=== PATIENT | female | born 1995 | race American Indian/Alaskan Native ===

== ENCOUNTER 2018-03-20 21:20 | Emergency (ER) | payer SELFPAY ==
[2018-03-20 21:48] LABS: Basophils # (Auto) 0.1 K/mm3 (0.0-0.1); Basophils % (Auto) 0.9 % (0.0-1.8); Eosinophils # (Auto) 0.2 K/mm3 (0.0-0.4); Eosinophils % (Auto) 2.6 % (0.0-4.3); Hematocrit 37.7 % (30.3-42.9); Hemoglobin 12.7 gm/dl (10.1-14.3); Lymphocytes # (Auto) 2.1 K/mm3 (1.2-5.4); Lymphocytes % (Auto) 25.9 % (13.4-35.0); Mean Corpuscular HGB Conc 34 % (30-34); Mean Corpuscular Hemoglobin 30 pg (28-32); Mean Corpuscular Volume 88 fl (79-97); Monocytes # (Auto) 0.6 K/mm3 (0.0-0.8); Monocytes % (Auto) 7.5 % (0.0-7.3); Platelet Count 295 K/mm3 (140-440); Red Blood Count 4.27 M/mm3 (3.65-5.03)
[2018-03-20 22:00] VITALS: BP 137/64
[2018-03-20 22:05] LABS: BUN/Creatinine Ratio 20; Blood Urea Nitrogen 12 mg/dL (7-17); Calcium 9.3 mg/dL (8.4-10.2); Hemolysis Index 3
[2018-03-20] MEDS ORDERED: PEPCID PO ONE (22:11)
[2018-03-20] MEDS ORDERED: BANOPHEN PO ONE (22:11)
[2018-03-20] MEDS ORDERED: TYLENOL PO ONE (22:11)
--- NOTE | 2018-03-20 22:12 | Emergency Department Report ---
ED General Adult HPI - General Chief complaint: Psych Stated complaint: ANIEXTY Time Seen by Provider: 03/20/18 21:53 Source: patient, RN notes reviewed Mode of arrival: Ambulatory Limitations: No Limitations - History of Present Illness Initial comments: This is a 22-year-old female who is not known to this provider. The patient reports no chronic medical conditions. Patient believes that she might be today. If so, she reports that she is 1, para 0, and reports that her last period was 2 months ago. Patient presents to the ER today with complaint of "nervous breakdown." She reports that she recently found out that she was , that she lost her job, found out that her partner/fianc may have been unfaithful to her, and reports that "it was too much for me to deal with." She reports that she has right-sided intermittent abdominal pain, which is present for the past 3-4 weeks, intermittent, worsens when she gets " stressed out", and decreases when she "relaxes." She is not having any abdominal pain at this time. She denies irritative, obstructive urinary symptoms. She is currently not homicidal or suicidal, does not have hallucinations, and does not have access to guns or firearms. She further reports that while being seen and evaluated by the nurse in triage, she was asked a screening question regarding suicidality, and indicates that in the past she has contemplated self-harm, but has never actually done it, and has never had a discrete plan. She also reports that while she was feeling anxious she started to experience chest tightness and pressure, which did not radiate to the back, arms or neck. There is no vomiting, there is no diaphoresis, there is no cough, there is no new or different shortness of breath, and the patient denies leg pain, leg swelling, recent travel, recent surgery. -: Gradual, Sudden Location: abdomen Severity scale (0 -10): 0 Quality: other Consistency: other Improves with: other Worsens with: other Associated Symptoms: chest pain, loss of appetite, malaise, weakness, other ( abdominal pain, denies homicidality and suicidality currently). denies: confusion, cough, diaphoresis, fever/chills, headaches, nausea/vomiting, rash, seizure, shortness of breath, syncope - Related Data Home Medications Medication Instructions Recorded Confirmed Last Taken No Known Home Medications [No 03/20/18 03/20/18 Unknown Reported Home Medications] Allergies Allergy/AdvReac Type Severity Reaction Status Date / Time No Known Allergies Allergy Unverified 03/20/18 21:33 ED Review of Systems ROS: Stated complaint: ANIEXTY Other details as noted in HPI Constitutional: malaise. denies: fever Eyes: denies: eye discharge ENT: denies: epistaxis Respiratory: denies: cough Cardiovascular: chest pain Gastrointestinal: abdominal pain Genitourinary: denies: dysuria Musculoskeletal: denies: arthralgia, myalgia Skin: denies: lesions Neurological: weakness Psychiatric: anxiety. denies: homicidal thoughts, suicidal thoughts ED Past Medical Hx - Past Medical History Hx Psychiatric Treatment: Yes (depression,anxiety) - Surgical History Past Surgical History?: No - Social History Smoking Status: Current Every Day Smoker Substance Use Type: Alcohol, Marijuana - Medications Home Medications: Home Medications Medication Instructions Recorded Confirmed Last Taken Type No Known Home Medications [No 03/20/18 03/20/18 Unknown History Reported Home Medications] ED Physical Exam - General Limitations: No Limitations General appearance: alert, anxious - Head Head exam: Present: atraumatic, normocephalic - Eye Eye exam: Present: normal appearance, EOMI. Absent: nystagmus - ENT ENT exam: Present: normal exam, normal orophraynx, mucous membranes moist, normal external ear exam - Neck Neck exam: Present: normal inspection, full ROM. Absent: tenderness, meningismus - Respiratory Respiratory exam: Present: normal lung sounds bilaterally. Absent: respiratory distress - Cardiovascular Cardiovascular Exam: Present: regular rate, normal rhythm, normal heart sounds. Absent: bradycardia, tachycardia, irregular rhythm, systolic murmur, diastolic murmur, rubs, gallop - GI/Abdominal GI/Abdominal exam: Present: soft, normal bowel sounds, other (there is a negative Rovsing sign. There is negative Gorman sign. There is negative psoas sign. There is no right lower quadrant tenderness.). Absent: distended, tenderness, guarding, rebound, rigid, pulsatile mass - Extremities Exam Extremities exam: Present: normal inspection, full ROM, normal capillary refill , other (2+ pulses noted in the bilateral upper, lower extremities. Compartments soft. No long bony tenderness. The pelvis is stable.). Absent: tenderness, pedal edema, joint swelling, calf tenderness - Back Exam Back exam: Present: normal inspection, full ROM. Absent: tenderness, CVA tenderness (R), paraspinal tenderness, vertebral tenderness - Neurological Exam Neurological exam: Present: alert, oriented X3, CN II-XII intact, normal gait, other (Extraocular movements intact. Tongue midline. No facial droop. Facial sensation intact to light touch in the V1, V2, V3 distribution bilaterally. 5 and 5 strength in 4 extremities.. Sensation is intact to light touch in 4 extremities.). Absent: motor sensory deficit - Psychiatric Psychiatric exam: Present: anxious. Absent: homicidal ideation, suicidal ideation - Skin Skin exam: Present: warm, dry, intact, normal color. Absent: rash ED Course Vital Signs 03/20/18 03/20/18 21:24 21:52 Temperature 98.3 F 98.3 F Pulse Rate 119 H 93 H Respiratory 18 18 Rate Blood Pressure 161/79 Blood Pressure 137/64 [Left] O2 Sat by Pulse 100 100 Oximetry - Reevaluation(s) Reevaluation #1: 03/20/18 22:57 Differential diagnosis, including not limited to: Anxiety, panic attack, mood disorder, , urinary tract infection Assessment and plan: 22-year-old female who is clinically sober at this time, not homicidal, not suicidal, with multiple psychosocial stressors. She is initially tachycardic and hypertensive, likely secondary to anxiety. She is still somewhat anxious now, but her tachycardia has resolved, and blood pressure appears to be improved. There is absolutely no lower abdominal tenderness, rebound or guarding or peritoneal signs. Patient carried on a full and complete conversation with me while I performed an abdominal examination. Therefore, I think appendicitis or surgical condition is very unlikely. Patient is medicated appropriately with nonnarcotic medication, including Benadryl for anxiety, and we will obtain a gynecologic ultrasound. Given that she is not homicidal or suicidal, and given that she can take care of herself, it is my pain at the patient does not meet criteria for 1013. I think she would benefit from evaluation by the mental health counselor to help provide her with appropriate outpatient resources to help her manage her numerous psychosocial stressors. Doubt pulmonary embolus given lack of fever, lack of hypoxia, resolution of tachycardia, especially in the overall clinical contacts. Lung sounds do not discern any focal abnormality and the patient is young and otherwise healthy, therefore do not feel like x-ray the chest is required. EKG is pending at this time. Reevaluation #2: 03/21/18 00:54 Patient has been reassessed by this provider multiple times while in the department. She is in no distress, and belly remained soft on repeat examination. Ultrasound confirms 10 week 1 day intrauterine . Patient seen in conjunction with the psychiatric liaison, Mr. Harry Hoang who agrees that patient does not meet 1013 or involuntary hold criteria, I will provide the patient with outpatient resources. Patient instructed to follow up as soon as possible with outpatient gynecology for her . She is also counseled to discontinue cannabis consumption. ED Medical Decision Making - Lab Data Result diagrams: 03/20/18 21:35 03/20/18 21:35 Vital Signs 03/20/18 03/20/18 21:24 21:52 Temperature 98.3 F 98.3 F Pulse Rate 119 H 93 H Respiratory 18 18 Rate Blood Pressure 161/79 Blood Pressure 137/64 [Left] O2 Sat by Pulse 100 100 Oximetry Lab Results 03/20/18 03/20/18 03/20/18 Range/Units 21:35 21:35 21:35 WBC (4.5-11.0) K/mm3 RBC (3.65-5.03) M/mm3 Hgb (10.1-14.3) gm/dl Hct (30.3-42.9) % MCV (79-97) fl MCH (28-32) pg MCHC (30-34) % RDW (13.2-15.2) % Plt Count (140-440) K/mm3 Lymph % (Auto) (13.4-35.0) % Luna % (Auto) (0.0-7.3) % Eos % (Auto) (0.0-4.3) % Baso % (Auto) (0.0-1.8) % Lymph # (1.2-5.4) K/mm3 Luna # (0.0-0.8) K/mm3 Eos # (0.0-0.4) K/mm3 Baso # (0.0-0.1) K/mm3 Seg Neutrophils % (40.0-70.0) % Seg Neutrophils # (1.8-7.7) K/mm3 Sodium 135 L (137-145) mmol/L Potassium 4.0 (3.6-5.0) mmol/L Chloride 99.4 (98-107) mmol/L Carbon Dioxide 20 L (22-30) mmol/L Anion Gap 20 mmol/L BUN 12 (7-17) mg/dL Creatinine 0.6 L (0.7-1.2) mg/dL Estimated GFR > 60 ml/min BUN/Creatinine Ratio 20 % Glucose 90 (65-100) mg/dL Calcium 9.3 (8.4-10.2) mg/dL Urine Bilirubin (Negative) Urine RBC (Auto) (0.0-6.0) /HPF U Epithel Cells (Auto) (0-13.0) /HPF Salicylates < 0.3 L (2.8-20.0) mg/dL Acetaminophen < 5.0 L (10.0-30.0) ug/mL Plasma/Serum Alcohol (0-0.07) % 03/20/18 03/20/18 03/20/18 Range/Units 21:35 21:35 22:07 WBC 8.2 (4.5-11.0) K/mm3 RBC 4.27 (3.65-5.03) M/mm3 Hgb 12.7 (10.1-14.3) gm/dl Hct 37.7 (30.3-42.9) % MCV 88 (79-97) fl MCH 30 (28-32) pg MCHC 34 (30-34) % RDW 13.0 L (13.2-15.2) % Plt Count 295 (140-440) K/mm3 Lymph % (Auto) 25.9 (13.4-35.0) % Luna % (Auto) 7.5 H (0.0-7.3) % Eos % (Auto) 2.6 (0.0-4.3) % Baso % (Auto) 0.9 (0.0-1.8) % Lymph # 2.1 (1.2-5.4) K/mm3 Luna # 0.6 (0.0-0.8) K/mm3 Eos # 0.2 (0.0-0.4) K/mm3 Baso # 0.1 (0.0-0.1) K/mm3 Seg Neutrophils % 63.1 (40.0-70.0) % Seg Neutrophils # 5.2 (1.8-7.7) K/mm3 Sodium (137-145) mmol/L Potassium (3.6-5.0) mmol/L Chloride (98-107) mmol/L Carbon Dioxide (22-30) mmol/L Anion Gap mmol/L BUN (7-17) mg/dL Creatinine (0.7-1.2) mg/dL Estimated GFR ml/min BUN/Creatinine Ratio % Glucose (65-100) mg/dL Calcium (8.4-10.2) mg/dL Urine Bilirubin Neg (Negative) Urine RBC (Auto) 1.0 (0.0-6.0) /HPF U Epithel Cells (Auto) 3.0 (0-13.0) /HPF Salicylates (2.8-20.0) mg/dL Acetaminophen (10.0-30.0) ug/mL Plasma/Serum Alcohol < 0.01 (0-0.07) % - EKG Data -: EKG Interpreted by Me EKG shows normal: sinus rhythm Rate: normal - EKG Data When compared to previous EKG there are: previous EKG unavailable 03/20/18 23:29 Sinus, 77 bpm, normal axis, QTC slightly prolonged, 437 ms, T wave inversion V2 , abnormal EKG, likely persistent juvenile T-wave inversion This EKG is not an ST elevation myocardial infarction - Radiology Data Radiology results: pending, report reviewed, image reviewed Critical care attestation.: If time is entered above; I have spent that time in minutes in the direct care of this critically ill patient, excluding procedure time. ED Disposition Clinical Impression: Disposition: DC-01 TO HOME OR SELFCARE Is pt being admited?: No Does the pt Need Aspirin: No Condition: Good Instructions: (ED) Additional Instructions: Take the medications as needed/directed. Follow up as soon as possible with an outpatient [facility] physician to initiate outpatient care. Return to the ER right away with new pain, worsened pain, migration of pain, projectile vomiting, change in mental status, confusion, inability to tolerate liquid feeds. Referrals: [facility] [Provider Group] - 3-5 Days [facility] [Provider Group] - 3-5 Days [facility] [Provider Group] - 3-5 Days
[2018-03-20 22:56] LABS: Bilirubin,Urine NEG (Negative); Blood,Urine NEG (Negative); Color,Urine Yellow (Yellow); Mucus,Urine FEW /HPF; Protein,Urine <15 mg/dL mg/dL (Negative); Urobilinogen,Urine < 2.0 mg/dL (<2.0)
[2018-03-20 23:06] LABS: HCG Qualitative,Urine Positive (Negative)
[2018-03-20 23:11] LABS: Amphetamine Screen,Urine PRESUMPTIVE NEGATIVE; Benzodiazepines Screen,Urine PRESUMPTIVE NEGATIVE; Cocaine Screen,Urine PRESUMPTIVE NEGATIVE; Methadone Screen,Urine PRESUMPTIVE NEGATIVE; Opiate Screen,Urine PRESUMPTIVE NEGATIVE
[2018-03-20 23:35] LABS: Cannabinoid Screen,Urine PRESUMPTIVE POSITIVE
--- NOTE | 2018-03-21 00:48 | Ultrasound Report ---
FINAL REPORT EXAM: US OB TRANSVAGINAL HISTORY: abd pain reports TECHNIQUE: Routine transvaginal imaging was obtained of the pelvis including Doppler interrogation of the uterus and adnexa. FINDINGS: The uterus is anteverted measuring 10.3 cm x 6.2 cm x 6.5 cm. Within the uterus is a well-formed gestational sac which contains an embryo corresponding to a 10 week 1 day IUP. The crown-rump length is 3.27 cm. The heart rate is 169 BPM. There is no evidence of a subchorionic hemorrhage. Free fluid is not seen. The left ovary measures 3.4 cm x 2 cm x 2.6 cm. The right ovary measures 3.5 cm 1.8 cm x 2.4 cm. The benign follicles in both ovaries. The blood flow is normal both ovaries. IMPRESSION: Single viable IUP, 10 weeks 1 day. The heart rate is 169 BPM. No evidence of ovarian torsion or free fluid.
--- NOTE | 2018-03-21 00:50 | Ultrasound Report ---
FINAL REPORT EXAM: US OB < = 14 WEEKS FETUS HISTORY: abd pain reports TECHNIQUE: Transvaginal imaging was obtained of the pelvis. FINDINGS: The uterus is anteverted measuring 10.3 cm x 6.2 cm x 6.5 cm. Within the uterus is a well-formed gestational sac which contains a yolk sac and pole. The crown-rump length is 3.27 cm corresponding to a 10 week 1 day IUP. The heart rate is 169 BPM. There is no evidence of subchorionic hemorrhage or free fluid. The ovaries are appropriate size contour blood flow and echotexture revealing benign follicles. The left ovary measures 3.4 cm x 2.1 cm x 2.6 cm. The right ovary measures 3.5 cm x 1.8 cm x 2.4 cm. IMPRESSION: Single viable IUP, 10 weeks 1 day. The heart rate is 169 BPM. Normal-appearing ovaries. No evidence of ovarian torsion or free fluid.
== END 2018-03-21 02:00 | disposition home or self-care (01) ==
LOC: ED 21:20
DX: O99.351 Diseases of the nervous system complicating pregnancy, first trimester (principal); F48.8 Other specified nonpsychotic mental disorders; O26.891 Other specified pregnancy related conditions, first trimester; R10.9 Unspecified abdominal pain; O99.341 Other mental disorders complicating pregnancy, first trimester; F41.9 Anxiety disorder, unspecified; O99.331 Smoking (tobacco) complicating pregnancy, first trimester; F12.10 Cannabis abuse, uncomplicated; Z79.899 Other long term (current) drug therapy; Z3A.10 10 weeks gestation of pregnancy
CPT/HCPCS: 36415; 76801; 76817; 80048; 80307; 81001; 81025; 84702; 85025; 93005; 93010; 99284; G0480; 80320; Q0163